=== PATIENT | female | born 1985 | race Caucasian/White ===

== ENCOUNTER 2020-02-28 09:00 | Observation (INO) | payer MEDICAID ==
[~2020-02-28 09:00] MED LIST: PREN-125 PO; RANI300T3 PO
--- NOTE | 2020-02-28 09:15 | NUR ---
OBTAIN CONSENTS FOR CO-VID TESTING , CO-VID TESTING DONE. PT TOLERATED WELL. PT DENIES ANY SYMPTOMS OF CO-VID.
== END 2020-02-28 09:25 | disposition home or self-care (01) | DRG 861 ==
LOC: LDRP 09:00
PROVIDERS: ADMIT Obstetrics & Gynecology; ATTEND Obstetrics & Gynecology
DX: Z03.818 Encounter for observation for suspected exposure to other biological agents ruled out (principal); Z34.90 Encounter for supervision of normal pregnancy, unspecified, unspecified trimester; Z3A.00 Weeks of gestation of pregnancy not specified
CPT/HCPCS: G0378; U0003

== ENCOUNTER 2020-03-04 04:00 | Inpatient (IN) | payer MEDICAID ==
[~2020-03-04] VITALS: Ht 162.6 cm; Wt 59.9 kg
[2020-03-04] VITALS (11 sets, daily range): BP systolic 80–133; BP diastolic 43–79
[2020-03-04] MEDS: LACTATED RINGER'S 1,000 ML IV SCH ×2 (04:54→05:51)
[2020-03-04 05:10] LABS: Basophils # (auto) 0 10 ^3/uL (0-0.2); Basophils % (auto) 0.3 % (0.0-2.0); Eosinophils # (auto) 0.1 10 ^3/uL (0-0.8); Eosinophils % (auto) 1.4 % (0.0-7.0); Lymphocytes # (auto) 2.1 10 ^3/uL (0.4-5.4); Lymphocytes % (auto) 25.2 % (10.0-50.0); Mean Corpuscular Hemoglobin 30.9 pg (28.0-32.0); Mean Corpuscular Hgb Conc. 33.2 g/dL (32.0-36.0); Mean Corpuscular Volume 93.1 fL (80.0-100.0); Monocytes # (auto) 0.5 10 ^3/uL (0-1.3); Monocytes % (auto) 6.7 % (0.0-12.0); Neutrophils # (auto) 5.4 10 ^3/uL (1.6-8.6); Neutrophils % (auto) 66.4 % (37.0-80.0); Platelet Count (auto) 213 10^3/uL (140-450); Red Blood Cells 3.87 10^6/uL (4.0-5.20); Red Cell Distribution Width 14.2 % (11.8-14.3); Urine Amorphous Crystal FEW /hpf (None Seen); Urine Bacteria FEW /hpf (None Seen); Urine Blood Negative /uL (Negative); Urine Mucus FEW (None Seen); Urine Specific Gravity 1.008 (1.001-1.035); Urine WBC 1 /hpf (0 - 5); White Blood Cell 8.2 10^3/uL (4.4-10.8)
[2020-03-04 05:23] LABS: INR 0.96 (0.9-1.15); Partial Thromboplastin Time 27.3 sec (23.64-32.05)
[2020-03-04 05:29] LABS: Albumin 2.4 g/dL (3.4-5.0); Calcium 8.9 mg/dL (8.5-10.1); Potassium 3.7 mmol/L (3.5-5.1)
[2020-03-04 05:34] LABS: BUN/Creatinine Ratio 7.2; Bilirubin, Total 0.3 mg/dL (0.2-1.0); Total Protein 6.3 g/dL (6.4-8.2)
[2020-03-04] MEDS ORDERED: TETRACAINE 1% INJ 2 ML VIAL IJ ONE ×2 (07:10→07:13)
[2020-03-04] MEDS ORDERED: MORPHINE SULF(PF) 0.5MG/ML 10ML VIAL ONE (07:16)
[2020-03-04] MEDS ORDERED: fentaNYL CITRATE 100 MCG/2 ML VL ONE (07:16)
[2020-03-04] MEDS ORDERED: EPINEPHrine HCL 1 MG/1 ML AMP ONE (07:17)
[2020-03-04] MEDS ORDERED: SODIUM CHLORIDE LOCK 10 ML ONE (07:17)
[2020-03-04] MEDS ORDERED: ONDANSETRON HCL 4 MG/2 ML VIAL ONE (07:17)
[2020-03-04] MEDS ORDERED: oxyTOCIN 10 UNIT/ML 10ML VIAL ONE (07:17)
[2020-03-04] MEDS ORDERED: MIDAZOLAM HCL 1MG/1ML-2 ML VIAL ONE (07:17)
[2020-03-04] MEDS ORDERED: CLINDAMYCIN 600MG IV 50 ML IV ONE (07:27)
[2020-03-04] MEDS ORDERED: LACTATED RINGER'S 1,000 ML IV SCH ×2 (08:59→14:30)
[2020-03-04] MEDS ORDERED: ONDANSETRON HCL 4 MG/2 ML VIAL IV PRN (09:00)
[2020-03-04] MEDS ORDERED: ACETAMINOPHEN IV 1000 MG/100ML (10MG/ML) IV PRN (09:00)
[2020-03-04] MEDS ORDERED: GUM (CHEWING) 1 GUM CHEW CHEW ONE (09:00)
[2020-03-04] MEDS ORDERED: NALOXONE HCL 0.4 MG/ML VIAL IV PRN (09:30)
[2020-03-04] MEDS ORDERED: METOCLOPRAMIDE HCL 5MG/ml INJ 2ml VIAL IV PRN (09:30)
[2020-03-04] MEDS ORDERED: fentaNYL CITRATE 100 MCG/2 ML VL IV PRN (09:30)
[2020-03-04] MEDS ORDERED: HYDROmorphone HCL 2 MG/ML VL IV PRN ×3 (09:30→14:30)
[2020-03-04] MEDS ORDERED: KETOROLAC TROMETH 30 MG/ML 1ML VIAL IV ONE (09:30)
[2020-03-04] MEDS ORDERED: diphenhdrAMINE HCL 50 MG/1 ML VL IV PRN (09:30)
[2020-03-04] MEDS ORDERED: MORPHINE SULFATE 4 MG/ML SYR/VIAL IV PRN (09:30)
[2020-03-04] MEDS: KETOROLAC TROMETH 30 MG/ML 1ML VIAL IV PRN ×3 (10:06→21:47)
[2020-03-04] MEDS ORDERED: CLINDAMYCIN 600MG IV 100 ML IV SCH ×4 (12:00→14:00)
[2020-03-04] MEDS: CLINDAMYCIN 600MG IV 50 ML IV SCH ×2 (14:18→20:55)
[2020-03-04] MEDS: CALCIUM CARB 500 MG CHEW TAB PO PRN ×2 (14:54→20:53)
[2020-03-04] MEDS ORDERED: LACTATED RINGER'S 500 ML IV ONE (15:00)
[2020-03-05] MEDS: CALCIUM CARB 500 MG CHEW TAB PO PRN ×2 (02:28→09:44)
[2020-03-05] MEDS: CLINDAMYCIN 600MG IV 50 ML IV SCH (02:28)
[2020-03-05 03:00] VITALS: BP 95/48
[2020-03-05] MEDS: KETOROLAC TROMETH 30 MG/ML 1ML VIAL IV PRN (03:55)
[2020-03-05 06:17] LABS: RPR Non Reactive (Non Reactive)
[2020-03-05 06:21] LABS: Basophils # (auto) 0 10 ^3/uL (0-0.2); Basophils % (auto) 0.2 % (0.0-2.0); Eosinophils # (auto) 0.1 10 ^3/uL (0-0.8); Eosinophils % (auto) 1.1 % (0.0-7.0); Lymphocytes # (auto) 1.3 10 ^3/uL (0.4-5.4); Lymphocytes % (auto) 17.6 % (10.0-50.0); Mean Corpuscular Hemoglobin 32.1 pg (28.0-32.0); Mean Corpuscular Hgb Conc. 34.3 g/dL (32.0-36.0); Mean Corpuscular Volume 93.6 fL (80.0-100.0); Monocytes # (auto) 0.4 10 ^3/uL (0-1.3); Monocytes % (auto) 4.9 % (0.0-12.0); Neutrophils # (auto) 5.8 10 ^3/uL (1.6-8.6); Neutrophils % (auto) 76.2 % (37.0-80.0); Platelet Count (auto) 184 10^3/uL (140-450); Red Cell Distribution Width 14.3 % (11.8-14.3); White Blood Cell 7.6 10^3/uL (4.4-10.8)
[2020-03-05 07:01] VITALS: BP 100/64
[2020-03-05] MEDS ORDERED: ACETAMINOPHEN IV 1000 MG/100ML (10MG/ML) IV PRN (08:10)
[2020-03-05] MEDS ORDERED: SIMETHICONE 80 MG CHEWABLE TABLET PO PRN (09:30)
[2020-03-05] MEDS ORDERED: HYDROcodone-ACET 5/325MG TAB PO PRN ×2 (09:30)
[2020-03-05] MEDS: IBUPROFEN 800 MG TAB PO PRN ×2 (09:49→17:58)
[2020-03-05] MEDS: DOCUSATE SOD 100 MG CAP PO SCH ×2 (09:49→21:48)
[2020-03-05 10:30] VITALS: BP 98/61
[2020-03-05 15:00] VITALS: BP 113/69
[2020-03-05] MEDS: ACETAMINOPHEN/CODEINE#3 (300/30mg) TAB PO PRN ×2 (15:49→21:48)
[2020-03-05 19:00] VITALS: BP 100/58
[2020-03-05 23:00] VITALS: BP 101/60
[2020-03-06] MEDS: IBUPROFEN 800 MG TAB PO PRN ×3 (02:34→19:05)
[2020-03-06 02:56] VITALS: BP 112/56
[2020-03-06 07:30] VITALS: BP 113/69
[2020-03-06] MEDS: DOCUSATE SOD 100 MG CAP PO SCH ×2 (09:30→21:48)
[2020-03-06 11:15] VITALS: BP 111/65
[2020-03-06 15:39] VITALS: BP 119/72
[2020-03-06 19:00] VITALS: BP 113/63
[2020-03-06 23:20] VITALS: BP 119/65
[2020-03-07 03:00] VITALS: BP 120/63
[2020-03-07] MEDS: IBUPROFEN 800 MG TAB PO PRN (04:03)
[2020-03-07 07:00] VITALS: BP 117/49
[2020-03-07] MEDS: ACETAMINOPHEN/CODEINE#3 (300/30mg) TAB PO PRN (09:33)
[2020-03-07] MEDS: DOCUSATE SOD 100 MG CAP PO SCH (09:33)
[2020-03-07 10:55] VITALS: BP 115/73
[2020-03-07 11:08] VITALS: BP 115/73
== END 2020-03-07 10:55 | disposition home or self-care (01) | DRG 540 ==
LOC: LDRP 04:00
PROVIDERS: ADMIT Specialist; ATTEND Specialist
PROC: 0UL70CZ Occlusion of Bilateral Fallopian Tubes with Extraluminal Device, Open Approach (ICD-10-PCS; 2020-03-04)
PROC: 10D00Z1 Extraction of Products of Conception, Low, Open Approach (ICD-10-PCS; principal; 2020-03-04 07:49)
DX: O13.4 Gestational [pregnancy-induced] hypertension without significant proteinuria, complicating childbirth (principal); O34.211 Maternal care for low transverse scar from previous cesarean delivery; R87.612 Low grade squamous intraepithelial lesion on cytologic smear of cervix (LGSIL); O34.43 Maternal care for other abnormalities of cervix, third trimester; Z37.0 Single live birth; Z3A.39 39 weeks gestation of pregnancy; Z30.2 Encounter for sterilization; Z88.0 Allergy status to penicillin; Z91.040 Latex allergy status
CPT/HCPCS: 36415; 59025; 80053; 81001; 84112; 85025; 85610; 85730; 86592; 86850; 86900; 86901; 94762; 96360; 96365; 96366; 96374; G0378; J0171; J1885; J2250; J2405; J2590; J3490